=== PATIENT | male | born 1960 | race Caucasian/White ===

== ENCOUNTER 2020-11-29 07:10 | Day surgery (SDC) | payer OTHER ==
[~2020-11-29] VITALS: Ht 177.8 cm; Wt 100.4 kg
[~2020-11-29 07:10] MED LIST: ASMANEX110 MC1; BUDE6HFA; CYCL10; HYDCHL25; LISI20 PO; NEBI10 PO
[2020-11-29] MEDS ORDERED: ATOR20 PO (07:32)
[2020-12-10] MEDS ORDERED: ALBU90OI (09:08)
[2020-12-10] MEDS ORDERED: ATOR20 PO (09:08)
[2020-12-10] MEDS ORDERED: FISH OIL PO (09:09)
[2020-12-10] MEDS ORDERED: VITAMIN D310 MC4 PO (09:09)
[2020-12-10] MEDS ORDERED: HYDCHL25 PO (09:10)
[2020-12-10] MEDS ORDERED: FLUT1DIS5 (09:10)
== END 2020-11-29 09:15 | disposition home or self-care (01) ==
LOC: ORSCSDS 07:10
PROVIDERS: Internal Medicine Gastroenterology
PROC: 0DB58ZX Excision of Esophagus, Via Natural or Artificial Opening Endoscopic, Diagnostic (ICD-10-PCS; principal; 2020-11-29 08:30)
DX: C15.9 Malignant neoplasm of esophagus, unspecified (principal); K22.2 Esophageal obstruction; R63.4 Abnormal weight loss; I10 Essential (primary) hypertension; E78.5 Hyperlipidemia, unspecified; G47.33 Obstructive sleep apnea (adult) (pediatric); J45.909 Unspecified asthma, uncomplicated; Z79.899 Other long term (current) drug therapy
CPT/HCPCS: 88305; 88341; 88342; 88360; J0330; J0461; J2405; J2704; J7120

== ENCOUNTER 2020-12-03 07:48 | Day surgery (SDC) | payer OTHER ==
[~2020-12-03 07:48] MED LIST changes: +ATOR20 PO
[2020-12-10] MEDS ORDERED: ATOR20 PO (09:08)
[2020-12-10] MEDS ORDERED: ALBU90OI (09:08)
[2020-12-10] MEDS ORDERED: VITAMIN D310 MC4 PO (09:09)
[2020-12-10] MEDS ORDERED: FISH OIL PO (09:09)
[2020-12-10] MEDS ORDERED: FLUT1DIS5 (09:10)
[2020-12-10] MEDS ORDERED: HYDCHL25 PO (09:10)
== END 2020-12-03 10:25 | disposition home or self-care (01) ==
LOC: ATC 07:48
DX: E86.0 Dehydration (principal); K22.2 Esophageal obstruction
CPT/HCPCS: 96360; 96361; J7042

== ENCOUNTER 2020-12-11 10:57 | Day surgery (SDC) | payer OTHER ==
[~2020-12-11] VITALS: Ht 177.8 cm; Wt 97.0 kg
[~2020-12-11 10:57] MED LIST changes: +ALBU90OI; +FISH OIL PO; +FLUT1DIS5; +HYDCHL25 PO; +VITAMIN D310 MC4 PO
--- NOTE | 2020-12-11 11:25 | NUR ---
Ambulatory in Day Surgery Surgical site prepped with 2% Chlorhexidine cloth wipe. Jessica Paws warming gown applied. History, Chart, Medications and Allergies reviewed before start of procedure.Lungs clear T/O to Auscultation. Patient confirms NPO status and agrees with scheduled surgery. Pre-Op teaching done. Pt verbalizes understanding. Patient States Post-Procedure ride home has been arranged. Patient reports completing Chlorhexadine shower X2 prior to admission to hospital.
--- NOTE | 2020-12-11 14:50 | NUR ---
12/11/20 1450 Brien Triplett 1448 LAPAROSCOPIC GASTROSTOMY TUBE STARTED AFTER RE-DRAPING AND PREPPING.
--- NOTE | 2020-12-11 17:14 | NUR ---
Dressing to procedure site clean, dry, intact with no visible drainage, swelling, erythema or bruising noted.
--- NOTE | 2020-12-11 17:23 | NUR ---
Discharge instructions reviewed with patient. Patient verbalizes understanding. Copy given to patient to take home. Patient States Post-Procedure ride home has been arranged.
--- NOTE | 2020-12-11 17:35 | NUR ---
Dressing to procedure site clean, dry, intact with no visible drainage, swelling, erythema or bruising noted. RN DEMONSTRATED HOW TO ACCESS AND FLUSH PEG TUBE, TAUGHT PT AND SPOUSE.
== END 2020-12-11 18:12 | disposition home or self-care (01) ==
LOC: ORSCMMR 10:57 → ORD 12:30 → ORSCMMR 18:12
PROVIDERS: Surgery
PROC: B5131ZA Fluoroscopy of Right Jugular Veins using Low Osmolar Contrast, Guidance (ICD-10-PCS; principal; 2020-12-11 12:30)
PROC: 0DH64UZ Insertion of Feeding Device into Stomach, Percutaneous Endoscopic Approach (ICD-10-PCS; principal; 2020-12-11 12:30)
PROC: 05HM33Z Insertion of Infusion Device into Right Internal Jugular Vein, Percutaneous Approach (ICD-10-PCS; principal; 2020-12-11 12:30)
DX: C15.9 Malignant neoplasm of esophagus, unspecified (principal); R13.14 Dysphagia, pharyngoesophageal phase; I10 Essential (primary) hypertension; E78.5 Hyperlipidemia, unspecified; G47.33 Obstructive sleep apnea (adult) (pediatric); K21.9 Gastro-esophageal reflux disease without esophagitis; Z87.891 Personal history of nicotine dependence; Z79.899 Other long term (current) drug therapy
CPT/HCPCS: 77001; C1788; J0461; J0690; J1642; J1885; J2250; J2405; J2704; J3010; J7120

== ENCOUNTER 2021-03-01 08:42 | Day surgery (SDC) | payer OTHER | END 2021-03-01 12:15 | disposition home or self-care (01) | LOC: ATC 08:42 | DX: C15.5 Malignant neoplasm of lower third of esophagus (principal); C77.8 Secondary and unspecified malignant neoplasm of lymph nodes of multiple regions; C79.51 Secondary malignant neoplasm of bone; D70.1 Agranulocytosis secondary to cancer chemotherapy; I10 Essential (primary) hypertension; J45.909 Unspecified asthma, uncomplicated; E78.5 Hyperlipidemia, unspecified | CPT/HCPCS: 96360; J1642; J7030 ==

== ENCOUNTER 2021-06-07 13:06 | Emergency (ER) | payer OTHER ==
[~2021-06-07] VITALS: Ht 177.8 cm; Wt 81.7 kg
== END 2021-06-07 18:10 | disposition home or self-care (01) ==
LOC: ER 13:06
DX: K94.23 Gastrostomy malfunction (principal); C15.9 Malignant neoplasm of esophagus, unspecified; G89.29 Other chronic pain; I10 Essential (primary) hypertension; E78.5 Hyperlipidemia, unspecified; Z79.899 Other long term (current) drug therapy
CPT/HCPCS: 43762; 49465; 99283-25; A9270

== ENCOUNTER 2021-06-14 10:28 | Day surgery (SDC) | payer OTHER ==
[2021-06-14] MEDS ORDERED: LORA.5 PO (11:06)
[2021-06-14] MEDS ORDERED: DEXA4 PO (11:07)
[2021-06-14] MEDS ORDERED: Nexium40 MG PO (11:07)
[2021-06-14] MEDS ORDERED: FENTANYL1 EA13 TOP (11:07)
[2021-06-14] MEDS ORDERED: MIRALAX17 GM PO (11:08)
[2021-06-14] MEDS ORDERED: METO10SY PO (11:08)
[2021-06-14] MEDS ORDERED: LIDO700A20 TOP (11:08)
[2021-06-14] MEDS ORDERED: ONDA4ODT MM (11:09)
== END 2021-06-14 12:05 | disposition home or self-care (01) ==
LOC: ATC 10:28
DX: C15.5 Malignant neoplasm of lower third of esophagus (principal); E56.0 Deficiency of vitamin E; I10 Essential (primary) hypertension; E78.5 Hyperlipidemia, unspecified; G47.33 Obstructive sleep apnea (adult) (pediatric); J45.909 Unspecified asthma, uncomplicated
CPT/HCPCS: 96361; 96374; J1642; J2405; J7030

== ENCOUNTER 2021-06-26 04:04 | Day surgery (SDC) | payer OTHER ==
[~2021-06-26 04:04] MED LIST changes: +DEXA4 PO; +FENTANYL1 EA13 TOP; +LIDO700A20 TOP; +LORA.5 PO; +METO10SY PO; +MIRALAX17 GM PO; +Nexium40 MG PO; +ONDA4ODT MM
== END 2021-06-26 23:35 | disposition home or self-care (01) ==
LOC: WOUND 04:04
DX: S41.101A Unspecified open wound of right upper arm, initial encounter (principal); X58.XXXA Exposure to other specified factors, initial encounter
CPT/HCPCS: A9270; G0463

== ENCOUNTER 2021-07-03 09:07 | Day surgery (SDC) | payer OTHER | END 2021-07-03 23:34 | disposition home or self-care (01) | LOC: WOUND 09:07 | DX: S41.101A Unspecified open wound of right upper arm, initial encounter (principal); C44.599 Other specified malignant neoplasm of skin of other part of trunk; L59.9 Disorder of the skin and subcutaneous tissue related to radiation, unspecified; X58.XXXA Exposure to other specified factors, initial encounter | CPT/HCPCS: 88305; 88341; 88342; A9270 ==

== ENCOUNTER 2021-07-08 02:04 | Day surgery (SDC) | payer OTHER | END 2021-07-08 23:09 | disposition home or self-care (01) | LOC: WOUND 02:04 | DX: C44.529 Squamous cell carcinoma of skin of other part of trunk (principal); C15.5 Malignant neoplasm of lower third of esophagus; C77.8 Secondary and unspecified malignant neoplasm of lymph nodes of multiple regions; Z93.1 Gastrostomy status | CPT/HCPCS: A9270; G0463 ==

== ENCOUNTER 2021-07-31 01:03 | Day surgery (SDC) | payer OTHER | END 2021-07-31 23:06 | disposition home or self-care (01) | LOC: WOUND 01:03 | DX: L59.9 Disorder of the skin and subcutaneous tissue related to radiation, unspecified (principal); S41.101D Unspecified open wound of right upper arm, subsequent encounter; X58.XXXD Exposure to other specified factors, subsequent encounter; C44.92 Squamous cell carcinoma of skin, unspecified; C15.9 Malignant neoplasm of esophagus, unspecified | CPT/HCPCS: A9270; G0463 ==

== ENCOUNTER 2021-09-05 10:50 | Inpatient (IN) | payer OTHER ==
[~2021-09-05] VITALS: Ht 177.8 cm; Wt 79.4 kg
[2021-09-05 11:38] LABS: Hematocrit 33.5 % (37.0-53.0); Hemoglobin 11.3 g/dL (13.5-17.5); Mean Corpuscular HGB Conc 33.7 g/dL (31.5-36.5); Mean Corpuscular Volume 101 fL (80-100); Mean Platelet Volume 10.5 fL (9.1-12.4); NRBC ABSOLUTE 0.12 K/mm3 (0.00-0.02); NRBC Auto 2.3 /100 WBC (0.0-0.2); Platelet Count 110 K/mm3 (150-400); RDW Coefficient Variation 16.8 % (11.7-14.2); Red Blood Cell Count 3.32 M/mm3 (4.30-5.90); White Blood Cell Count 5.33 K/mm3 (4.00-11.30)
[2021-09-05 12:06] LABS: Alanine Aminotransfer (ALT/SGP 31 U/L (12-78); Albumin, Blood 2.6 g/dL (3.4-5.0); Albumin/Globulin Ratio 0.7 (0.8-1.8); Alk Phos 108 U/L (50-136); Anion Gap 4 mmol/L (6-16); Aspartate Aminotrans (AST/SGOT 40 U/L (12-37); Bilirubin, Direct 0.2 mg/dL (0.0-0.3); Bilirubin, Indirect 0.4 mg/dL (0.1-0.7); Bilirubin, Total 0.6 mg/dL (0.1-1.0); Blood Urea Nitrogen 15 mg/dL (8-24); Bun/Creatinine Ratio 34.6 (12.0-20.0); CO2, Blood 27 mmol/L (21-32); Calcium, Blood 8.5 mg/dL (8.5-10.1); Chloride, Blood 100 mmol/L (98-108); Creatinine, Blood 0.43 mg/dL (0.60-1.20); Globulin, Blood 3.5 g/dL (2.2-4.0); Glomerular Filtration Rate >60 (60-); Glucose, Blood 95 mg/dL (70-99); Magnesium, Blood 1.7 mg/dL (1.6-2.4); Potassium, Blood 3.5 mmol/L (3.5-5.5); Sodium, Blood 131 mmol/L (136-145); Total Protein, Blood 6.1 g/dL (6.4-8.2); Troponin I <0.015 ng/mL (0.000-0.040)
[2021-09-05 12:07] LABS: International Normalized Ratio 1.04; Prothrombin Time Results 10.9 Sec (9.7-11.5)
[2021-09-05 12:13] LABS: BAND PERCENT MAN 17 % (0-8); BASOPHILS ABSOLUTE MAN 0.05 K/mm3 (0.00-0.23); BASOPHILS PERCENT MAN 1 % (0-2); EOSINOPHILS PERCENT MAN 0 % (0-6); LYMPHOCYTES ABSOLUTE MAN 1.01 K/mm3 (0.84-5.20); LYMPHOCYTES PERCENT MAN 19 % (21-46); MONOCYTES ABSOLUTE MAN 0.42 K/mm3 (0.16-1.47); MONOCYTES PERCENT MAN 8 % (4-13); NEUTROPHILS ABSOLUTE MAN 3.83 K/mm3 (1.96-9.15); SEG NEUTROPHILS PERCENT MAN 55 % (41-73); TOTAL CELLS COUNTED 100
[2021-09-05 12:52] LABS: SARS-Cov-2 (COVID-19) PCR, MMC NEGATIVE (NEGATIVE)
[2021-09-05] MEDS ORDERED: OXYC1L PO (14:24)
[2021-09-05] MEDS ORDERED: TRAZ50 PO (14:25)
[2021-09-05] MEDS ORDERED: DEXAMETHAS0.5 MG/5 M PO (14:26)
[2021-09-05] MEDS ORDERED: Nexium40 MG PO (15:44)
[2021-09-05 15:47] LABS: Source, Urine Catheter
[2021-09-05 15:59] LABS: Appearance, Urine Hazy (Clear); Bilirubin, Urine Neg (Neg); Blood, Urine 1+ (Neg); Color, Urine Yellow (P-Yellow); Glucose Qualitative, Urine Neg (Neg); Ketones, Urine Neg (Neg); Leukocyte Esterase, Urine Neg (Neg); Nitrite, Urine Neg (Neg); Protein, Urine Neg (Neg); Urobilinogen, Urine NORM (Normal)
[2021-09-05 16:16] LABS: Bacteria Rare /hpf; Red Blood Cells, Urine 0-2 /hpf (0-2); Squamous Epithelial Cells Not Seen /hpf (Few); White Blood Cells, Urine 0-2 /hpf (0-5)
--- NOTE | 2021-09-05 16:25 | NUR ---
NEW ADMISSION Pt arrived from the Er with his at his side. He was able to get up and ambulate to the bathroom. He arrived with a temp of 98.2. IV fluids and ABO started as ordered. Pt has an open area that the reports as an open lymph node in his right axilla and the reports that he has been to the wound center in the past and they would just like it to be kept clean and dry and open to air. The pt is fatigued and falls asleep during assessment. He has a mediport but it in not accessed. The pt is NPO and per his receives blous tube feedings, the dock superintendent has been called and met with the before entering tube feed orders. is at the bedside and she is his primary caregiver, pt has his call light in reach and is able to make his needs known.
--- NOTE | 2021-09-06 02:35 | NUR ---
SHIFT SUMMARY: PT WITH MILD CONFUSION OVERNIGHT TO PLACE AND TIME, REORIENTS EASILY, SLIGHTY ANXIOUS, ABLE TO VERBALIZE NEEDS. REQUIRES ASSIST WITH CARE, BUT IS HESITANT TO ASK. VSS, T-MAX SO FAR THIS SHIFT 101.5, C/O MILD NAUSEA EARLY IN SHIFT RESOLVED WITH IV ZOFRAN. SR ON TELE, HAD FEELINGS OF "FULLNESS" AND SLIGHT RETURN OF NAUSEA AFTER 240ML OF PRESCIBED TUBE FEEDING, SO PEG TUBE FLUSHED AND CAPPED. RESIDUAL RECHECK LATER IN SHIFT WAS ZERO. RESTED INTERMITTENTLY THROUGHOUT NIGHT, HAS FENTANYL PATCH BUT GIVEN PRN PAIN MED EARLY IN SHIFT FOR BTP W/ GOOD EFFECT. BED LOCKED ANDLOW, BED ALARM ACTIVATED AND CALL MCCABE IN REACH. MADONNA FIGUEREDO
[2021-09-06 03:58] LABS: Hematocrit 30.2 % (37.0-53.0); Mean Corpuscular HGB 33.8 pg (26.0-34.0); Mean Corpuscular HGB Conc 33.1 g/dL (31.5-36.5); Mean Corpuscular Volume 102 fL (80-100); Mean Platelet Volume 10.4 fL (9.1-12.4); NRBC ABSOLUTE 0.14 K/mm3 (0.00-0.02); NRBC Auto 2.4 /100 WBC (0.0-0.2); Platelet Count 94 K/mm3 (150-400); RDW Coefficient Variation 16.8 % (11.7-14.2); RDW Standard Deviation 62.3 fL (35.1-46.3); Red Blood Cell Count 2.96 M/mm3 (4.30-5.90); White Blood Cell Count 5.76 K/mm3 (4.00-11.30)
[2021-09-06 04:14] LABS: Alanine Aminotransfer (ALT/SGP 24 U/L (12-78); Albumin/Globulin Ratio 0.7 (0.8-1.8); Alk Phos 83 U/L (50-136); Anion Gap 5 mmol/L (6-16); Aspartate Aminotrans (AST/SGOT 34 U/L (12-37); Bilirubin, Total 0.5 mg/dL (0.1-1.0); Blood Urea Nitrogen 12 mg/dL (8-24); Bun/Creatinine Ratio 29.1 (12.0-20.0); CO2, Blood 26 mmol/L (21-32); Calcium, Blood 7.7 mg/dL (8.5-10.1); Chloride, Blood 104 mmol/L (98-108); Creatinine, Blood 0.41 mg/dL (0.60-1.20); Globulin, Blood 2.9 g/dL (2.2-4.0); Glomerular Filtration Rate >60 (60-); Glucose, Blood 92 mg/dL (70-99); Magnesium, Blood 1.9 mg/dL (1.6-2.4); Potassium, Blood 3.6 mmol/L (3.5-5.5); Sodium, Blood 135 mmol/L (136-145); Total Protein, Blood 4.9 g/dL (6.4-8.2)
[2021-09-06 04:17] LABS: BAND PERCENT MAN 31 % (0-8); BASOPHILS ABSOLUTE MAN 0.05 K/mm3 (0.00-0.23); BASOPHILS PERCENT MAN 1 % (0-2); EOSINOPHILS ABSOLUTE MAN 0.05 K/mm3 (0.00-0.68); EOSINOPHILS PERCENT MAN 1 % (0-6); LYMPHOCYTES ABSOLUTE MAN 0.11 K/mm3 (0.84-5.20); LYMPHOCYTES PERCENT MAN 2 % (21-46); MONOCYTES ABSOLUTE MAN 0.34 K/mm3 (0.16-1.47); MONOCYTES PERCENT MAN 6 % (4-13); NEUTROPHILS ABSOLUTE MAN 5.18 K/mm3 (1.96-9.15); SEG NEUTROPHILS PERCENT MAN 59 % (41-73); TOTAL CELLS COUNTED 100
--- NOTE | 2021-09-06 18:31 | NUR ---
SHIFT SUMMARY PT HAS BEEN RESTING IN BED THROUGHOUT THE SHIFT. PT HAS MADE SEVERAL TRIPS TO THE RESTROOM WITH WALKER AND GAITBELT AND 1 STAFF MEMBER TO ASSIST. PT HAS MAINTAINED A TEMPERATURE OF 99.5-100.[address]'S ORDERS, TUBE FEEDING HAS BEEN HELD TODAY. PT AND FAMILY MEMBER HAVE MADE SEVERAL COMPLAINTS ABOUT WITHHOLDING TUBE FEED WHICH WERE ADDRESSED WITH PT EDUCATION AND A REQUEST TO THE DR TO COMMUNICATE WITH PT AND FAMILY. ALL OTHER VITAL SIGNS HAVE BEEN STABLE, NO ACUTE CHANGES TO CONDITION.
--- NOTE | 2021-09-06 22:17 | NUR ---
PT ASSESSED AT BEGINNING OF SHIFT WITH SPOUSE IN ROOM, DISCUSSED VISITING HOURS, WHICH HAVE CURRENLTY. VS TAKEN, SPOUSE QUESTIONED RESULT. WHEN THIS RN STEPPED OUT OF ROOM TO OBTAIN EQUIPMENT, RETURNED TO FIND SPOUSE CHECKING PT'S TEMPERATURE, AND WHEN QUESTIONED WHY SHE WAS DOING SO SINCE SHE WAS JUST UPDATED ABOUT VS 5 MINUTES AGO BY THIS RN, SPOUSE STATES, "I DONT THINK THESE ARE VERY ACCURATE. HE HAS BEEN HAVING A LOT OF DIFFERENT RESULTS." EDUCATED SPOUSE THAT PATIENT IS EXPERIENCING INTERMITTENT FEVERS AND THAT VARIOUS RESULTS EXPECTED. SPOUSE STILL IN ROOM 30 MINUTES LATER AND AGAIN EDUCATED ON VISITING HOURS. MADONNA CRUM
--- NOTE | 2021-09-06 22:36 | NUR ---
PER PHARMACIST, OK TO PIGGYBACK UNASYN TO CLINIMIX
--- NOTE | 2021-09-07 03:49 | NUR ---
SHIFT SUMMARY: MILD DISORIENTATION TO TIME AND PLACE OVERNIGTH BUT REORIENTS EASILY. PT IMPULSIVE, BED ALARM ACTIVATED, TO BSC FOR TOILETING NEEDS. GAIT WEAK AND UNSTEADY AND PT RELUCTANT TO ACCEPT HELP WITH CARE. SR ON TELE, T-MAX 100.9 TONIGHT BUT HAS HAD LOW LEVEL FEVER ALL NIGHT WITH LOWEST TEMP 99.9, MEDICATED X1 FOR BTP WITH PRESCRIBED MED WITH GOOD EFFECT, PT ABLE TO REST COMFORTABLY FOR SEVERAL HOURS AT A TIME, ONLY WAKING TO VOID. BED LOCKED AND LOW, CALL MCCABE IN REACH. REVERSE ISOLATION IN EFFECT. PEG TUBE FLUSHED EASILY, BOLUS TUBE FEEDINGS ON HOLD PER ORDER, CLINIMIX UP AND INFUSING ORDERED. MADONNA CRUM
[2021-09-07 03:52] LABS: Hematocrit 29.3 % (37.0-53.0); Hemoglobin 9.7 g/dL (13.5-17.5); Mean Corpuscular HGB 33.6 pg (26.0-34.0); Mean Corpuscular HGB Conc 33.1 g/dL (31.5-36.5); Mean Corpuscular Volume 101 fL (80-100); Mean Platelet Volume 10.5 fL (9.1-12.4); Platelet Count 103 K/mm3 (150-400); RDW Coefficient Variation 16.1 % (11.7-14.2); RDW Standard Deviation 59.7 fL (35.1-46.3); Red Blood Cell Count 2.89 M/mm3 (4.30-5.90); White Blood Cell Count 7.31 K/mm3 (4.00-11.30)
[2021-09-07 04:05] LABS: Albumin, Blood 1.8 g/dL (3.4-5.0); Anion Gap 6 mmol/L (6-16); Blood Urea Nitrogen 13 mg/dL (8-24); Bun/Creatinine Ratio 39.6 (12.0-20.0); CO2, Blood 24 mmol/L (21-32); Calcium, Blood 7.7 mg/dL (8.5-10.1); Chloride, Blood 104 mmol/L (98-108); Creatinine, Blood 0.33 mg/dL (0.60-1.20); Glomerular Filtration Rate >60 (60-); Glucose, Blood 130 mg/dL (70-99); Phosphorus, Blood 1.8 mg/dL (2.5-4.9); Potassium, Blood 3.1 mmol/L (3.5-5.5); Sodium, Blood 134 mmol/L (136-145)
[2021-09-07 04:45] LABS: BAND PERCENT MAN 35 % (0-8); BASOPHILS PERCENT MAN 0 % (0-2); EOSINOPHILS PERCENT MAN 0 % (0-6); LYMPHOCYTES ABSOLUTE MAN 0.14 K/mm3 (0.84-5.20); LYMPHOCYTES PERCENT MAN 2 % (21-46); MONOCYTES ABSOLUTE MAN 0.36 K/mm3 (0.16-1.47); MONOCYTES PERCENT MAN 5 % (4-13); NEUTROPHILS ABSOLUTE MAN 6.79 K/mm3 (1.96-9.15); SEG NEUTROPHILS PERCENT MAN 58 % (41-73); TOTAL CELLS COUNTED 100
--- NOTE | 2021-09-08 00:45 | NUR ---
PATIENT ALERT AND ORIENATED, ABLE TO MAKE NEEDS KNOWN, ONE PERSON ASSIST WITH A FWW TO RESTROOM, STEADY WITH AMBULATION. PEG TUBE IS AT 7CM SITE IS CLEAN DRY AND INTACT BOLUS FEEDING 500ML GIVEN AT MIDNIGHT NO RESIDUAL NOTED, VITALS ARE STABLE SLIGHT TEMPERATURE MAINTAINING AT 99.0-99.3 WILL CONTINUE TO MONITOR.
[2021-09-08 03:58] LABS: Hematocrit 26.9 % (37.0-53.0); Hemoglobin 9.1 g/dL (13.5-17.5); Mean Corpuscular HGB 33.7 pg (26.0-34.0); Mean Corpuscular HGB Conc 33.8 g/dL (31.5-36.5); Mean Corpuscular Volume 100 fL (80-100); Mean Platelet Volume 10.3 fL (9.1-12.4); Platelet Count 114 K/mm3 (150-400); RDW Standard Deviation 57.8 fL (35.1-46.3); White Blood Cell Count 8.87 K/mm3 (4.00-11.30)
[2021-09-08 04:34] LABS: Albumin, Blood 1.6 g/dL (3.4-5.0); Anion Gap 6 mmol/L (6-16); Blood Urea Nitrogen 10 mg/dL (8-24); Bun/Creatinine Ratio 28.4 (12.0-20.0); CO2, Blood 26 mmol/L (21-32); Calcium, Blood 7.5 mg/dL (8.5-10.1); Chloride, Blood 101 mmol/L (98-108); Creatinine, Blood 0.35 mg/dL (0.60-1.20); Glomerular Filtration Rate >60 (60-); Glucose, Blood 162 mg/dL (70-99); Potassium, Blood 2.9 mmol/L (3.5-5.5); Sodium, Blood 133 mmol/L (136-145)
[2021-09-08 05:27] LABS: Phosphorus, Blood 0.9 mg/dL (2.5-4.9)
[2021-09-08 05:39] LABS: BAND PERCENT MAN 45 % (0-8); BASOPHILS PERCENT MAN 0 % (0-2); EOSINOPHILS PERCENT MAN 0 % (0-6); LYMPHOCYTES ABSOLUTE MAN 0.17 K/mm3 (0.84-5.20); LYMPHOCYTES PERCENT MAN 2 % (21-46); MONOCYTES ABSOLUTE MAN 0.17 K/mm3 (0.16-1.47); MONOCYTES PERCENT MAN 2 % (4-13); NEUTROPHILS ABSOLUTE MAN 8.51 K/mm3 (1.96-9.15); SEG NEUTROPHILS PERCENT MAN 51 % (41-73); TOTAL CELLS COUNTED 100
--- NOTE | 2021-09-08 07:00 | NUR ---
CARE ASSUMPTION THIS RN ASSUMED CARE FROM FELIX PEACOCK. PATIENT A/OX4. VSS. SPO2 >90%. TELE. PATIENT REPORTS NO PAIN, CHEST PAIN OR SOB. CALL LIGHT WITHIN REACH. WILL CONTINUE TO MONITOR AND PROVIDE CARE.
--- NOTE | 2021-09-08 10:50 | NUR ---
Family contact - indiraErin holloway [phone] -Mohini [phone]. t/c received from pt's IndiraErin with request for her mom to be allowed in earlier due to pt's confusion and wanting to be present for oncology visit. Checked in with pt's RN and rn hemodialysis charge. No oncology consult ordered and pt appears clear, alert and oriented per RN. She had him up OOB in BR when I arrived and I was not able to visit with him. Returned call to indira to let her know family should call Dr Lamb at his office if questions for him re: plan of care for tx of cancer. Indira was glad pt had been referred to [facility]. I will try to visit pt/ when she is hear during regular visiting hours this afternoon.
[2021-09-08 14:44] LABS: Albumin, Blood 1.8 g/dL (3.4-5.0); Anion Gap 7 mmol/L (6-16); Blood Urea Nitrogen 10 mg/dL (8-24); Bun/Creatinine Ratio 33.6 (12.0-20.0); CO2, Blood 26 mmol/L (21-32); Calcium, Blood 7.9 mg/dL (8.5-10.1); Chloride, Blood 99 mmol/L (98-108); Glomerular Filtration Rate >60 (60-); Glucose, Blood 132 mg/dL (70-99); Phosphorus, Blood 1.8 mg/dL (2.5-4.9); Potassium, Blood 3.2 mmol/L (3.5-5.5); Sodium, Blood 132 mmol/L (136-145)
--- NOTE | 2021-09-08 16:00 | NUR ---
Initial visit made to pt and . Discussed current status and s/s. Pt reports some nausea with restart of g-tube feedings and states Zofran has been helpful for that. We talked about needs at home, DME, relocating pt in home so stairs are not a barrier to easy access to BR, BSC if needed and wedge pillow for hob elevation if receiving tube feedings while sleeping or hospital bed with hob elevation available. Some light conversation also employed for therapeutic distraction. Pt expressed fear r/t dying or aspirating in his sleep. Assured him we would not give anything via g-tube without elevation of HOB. Pt started to say, "well, it's coming anyway"... referring to dying and interupted saying "No, you're ok now. Everything will be ok.". I waited a few moments and then encouraged pt/ to express all feelings, fear, grief, chris, anger, gratitude etc that he felt. Both expressed appreciation for the visit. exhibiting extreme fatigue, CG exhaustion and apprehension/anxiety with 's serious illness and growing significant care needs. We discussed HH PT to help with making home more ADL friendly & increase safety with mobility, HH RN services prn. Pt more alert/oriented since admit. We reviewed multiple reasons confusion, altered MS/LOC occurs. verbalized concerns for lack of adequate nutrition over past 2-3 days. We talked about reasons feedings were necessarily held and she verbalized understanding. She and pt have good family support and are clearly very supportive and loving to each other. Planned with pt and to check in on them tomorrow. states Dr Lamb's office and [facility] dietitian are aware of his admission to the hospital and that they will follow up with them later in the week.
--- NOTE | 2021-09-08 17:37 | NUR ---
REPORT TO MED RN THIS RN GAVE REPORT TO MADONNA BRAR ON MEDICAL FLOOR. WILL WAIT UNTIL ROOM IS CLEAN TO TAKE PATIENT UP.
--- NOTE | 2021-09-08 17:58 | NUR ---
SHIFT SUMMARY PATIENT A/OX4. VSS. SPO2 >90% ON RA. TELE SR. PATIENT STATES HE HAS CHRONIC BACK PAIN, AND PAIN MEDICATION PER EMAR HELPS RELIEVE THIS. PATIENT HAS HAD TWO EPISODES OF NAUSE DURING THIS SHIFT AND RECEIVE ZOFRAN AND REGLAN PER EMAR. THIS PATIENT IS CURRENTLY RESTING IN BED WITH AT BEDSIDE UNTIL TRANSFER UP TO MEDICAL FLOOR. CALL LIGHT WITHIN REACH.
--- NOTE | 2021-09-08 18:14 | NUR ---
PATIENT TO [facility] PATIENT BELONGINGS GATHERED AND PATIENT UP TO [facility].
--- NOTE | 2021-09-09 04:30 | NUR ---
SHIFT SUMMARY AOX4. REPORTS CHRONIC 8/10 PAIN IN LOW BACK R/T CANCER ARELY, MEDICATED c TYLENOL & 10MG OXYCODONE 1X. PT FINALLY ABLE TO FALL ASLEEP AROUND 0230 THIS AM. TELE NSR HR 92. SPO2 @86-88% ON RA THIS AM WHILE ASLEEP. PLACED 2L O2 ON & SPO2 @92%. LS DIM IN BASES. E/U RESP. DENIES SOB @REST. PT NPO. RECIEVING MEDS & TUBE FEEDINGS. DENIES N/V. ABLE TO MAKE NEEDS KNOWN. CALL LIGHT IN REACH. WCTM.
[2021-09-09 05:04] LABS: BASOPHILS ABSOLUTE AUTO 0.03 K/mm3 (0.00-0.23); BASOPHILS PERCENT AUTO 0 % (0-2); Hematocrit 26.3 % (37.0-53.0); LYMPHOCYTES ABSOLUTE AUTO 0.23 K/mm3 (0.84-5.20); LYMPHOCYTES PERCENT AUTO 2 % (21-46); MONOCYTES ABSOLUTE AUTO 0.55 K/mm3 (0.16-1.47); MONOCYTES PERCENT AUTO 6 % (4-13); Mean Corpuscular HGB 33.7 pg (26.0-34.0); Mean Corpuscular HGB Conc 34.2 g/dL (31.5-36.5); Mean Corpuscular Volume 99 fL (80-100); Mean Platelet Volume 9.9 fL (9.1-12.4); Platelet Count 136 K/mm3 (150-400); RDW Standard Deviation 56.9 fL (35.1-46.3); Red Blood Cell Count 2.67 M/mm3 (4.30-5.90); White Blood Cell Count 9.94 K/mm3 (4.00-11.30)
[2021-09-09 05:05] LABS: EOSINOPHILS ABSOLUTE AUTO 0.03 K/mm3 (0.00-0.68); EOSINOPHILS PERCENT AUTO 0 % (0-6); IMMATURE GRAN ABSOLUTE AUTO 0.12 K/mm3 (0.00-0.10); IMMATURE GRAN PERCENT AUTO 1 % (0-1); NEUTROPHILS ABSOLUTE AUTO 8.98 K/mm3 (1.96-9.15); NEUTROPHILS PERCENT AUTO 90 % (41-73)
[2021-09-09 05:25] LABS: Albumin, Blood 1.5 g/dL (3.4-5.0); Anion Gap 6 mmol/L (6-16); Blood Urea Nitrogen 9 mg/dL (8-24); Bun/Creatinine Ratio 25.9 (12.0-20.0); CO2, Blood 27 mmol/L (21-32); Calcium, Blood 7.5 mg/dL (8.5-10.1); Chloride, Blood 101 mmol/L (98-108); Creatinine, Blood 0.35 mg/dL (0.60-1.20); Glomerular Filtration Rate >60 (60-); Glucose, Blood 97 mg/dL (70-99); Phosphorus, Blood 1.6 mg/dL (2.5-4.9); Potassium, Blood 3.4 mmol/L (3.5-5.5); Sodium, Blood 134 mmol/L (136-145)
--- NOTE | 2021-09-09 10:39 | NUR ---
PATIENT UP AMBULATING TO BATHROOM WITH STAND BY ASSIST. USES FRONT WHEEL WALKER. RETURNS TO BED MD AT BEDSIDE FOR AM ROUNDINGS. PAITENT IS AO X 3. PLEASANT AFFECT. NADN. PATIENT TO HAVE REPEAT XRAY IN THE AM. TUBE FEEDINGS ADMIN ORDERED. NO RESIDUAL NOTED FEED ONE CARTON AT 250ML. ADMIN PER PEGG AND 240ML ADMIN POST. PATIENT REQUESTING ZOFRAN ADMIN FOR NAUSEA AND ALSO HIS OXYCODONE PRN TABLET. PATIENT EXPRESSES 8/10 PAIN IN HIS LOW BACK. HE WAS PROVIDED PO TYLENOL 1 HOUR PRIOR WITH MINIMAL SUCCESS. SPOUSE CALLS AND SHE IS BRINGING NIKATENT CLEAN CHANGE OF CLOTHING AND HE WANTS TO WAIT TO SHOWER TILL SHE ARRIVES. PATIENT DENIES ANY FURTHER WANTS OR NEEDS. ЮЛИЯ LANZA RN
[2021-09-09 12:37] LABS: Vancomycin, Trough 7.2 ug/mL (5.0-10.0)
--- NOTE | 2021-09-09 14:52 | NUR ---
Visit to pt/ in . Pt is noticeably more irritated and uncomfortable today. requestes update and information gathered and reported from RN and . Also, Dr will round later this afternoon to update in person. Pt waiting for IV to be completed so he and can get him a shower. Pt expressed feeling he did not have enough time with his . I made my visit brief and shut the door for their privacy when I left. Plan is for CXR in am, reeval of progress and Dr to speak with cut off saw grader re: recommendation on g-tube feedings also. [facility] to remain available to pt/family during his stay. Pt is experiencing some nausea still, with zofran being administered per eMAR with relief of nausea per pt.
--- NOTE | 2021-09-09 18:02 | NUR ---
Shift Summary A/Ox4, reports patient can be forgetful/confused at times; however did not present this way today. Up with SBA and FWW to bathroom, had shower this shift. Medicated for back pain per EMAR with good effect. C/O nausea after tube feedings, zofran given. Patient reports reglan "gives me the runs." Tele: SR [id number]. would like call from to discuss possible HH and additional assistive devices to be ordered. R arm pit has open area that is hard and round when palpated. Patient reports this is related to cancerous lymph nodes in that area. Sputum sample sent. TM.
[2021-09-10 05:54] LABS: BASOPHILS ABSOLUTE AUTO 0.02 K/mm3 (0.00-0.23); BASOPHILS PERCENT AUTO 0 % (0-2); Hematocrit 25.9 % (37.0-53.0); Hemoglobin 8.7 g/dL (13.5-17.5); LYMPHOCYTES ABSOLUTE AUTO 0.27 K/mm3 (0.84-5.20); LYMPHOCYTES PERCENT AUTO 2 % (21-46); MONOCYTES ABSOLUTE AUTO 0.52 K/mm3 (0.16-1.47); MONOCYTES PERCENT AUTO 5 % (4-13); Mean Corpuscular HGB 33.3 pg (26.0-34.0); Mean Corpuscular HGB Conc 33.6 g/dL (31.5-36.5); Mean Corpuscular Volume 99 fL (80-100); Mean Platelet Volume 10.2 fL (9.1-12.4); Platelet Count 170 K/mm3 (150-400); RDW Coefficient Variation 15.9 % (11.7-14.2); Red Blood Cell Count 2.61 M/mm3 (4.30-5.90); White Blood Cell Count 11.09 K/mm3 (4.00-11.30)
[2021-09-10 05:57] LABS: EOSINOPHILS ABSOLUTE AUTO 0.02 K/mm3 (0.00-0.68); EOSINOPHILS PERCENT AUTO 0 % (0-6); IMMATURE GRAN ABSOLUTE AUTO 0.17 K/mm3 (0.00-0.10); IMMATURE GRAN PERCENT AUTO 2 % (0-1); NEUTROPHILS ABSOLUTE AUTO 10.09 K/mm3 (1.96-9.15); NEUTROPHILS PERCENT AUTO 91 % (41-73)
--- NOTE | 2021-09-10 06:14 | NUR ---
SHIFT SUMMARY PT HAD A DIFFICULT EVENING. REQUIRING MORE OXYGEN MOST OF THE NIGHT. LUNG SOUNDS WITH CRACKLES THROUGHOUT. PT ON 6-11 L. SWITCHED PT TO OXYMIZER WHEN NEEDING MORE LITERS. PT DENIES SOB WHILE AT REST BUT REPORTS FEELING OVERALL VERY "TIRED". SEVERAL TRIPS MADE TO THE RESTROOM. STOOL LOOSE WITH EACH TRIP. PT BECAME MORE AND MORE WEAK WITH EACH TRIP. ON THE LAST ONE PT WAS UNABLE TO AMBULATE BACK TO BED. PT WAS PLACED ON SHOWER CHAIR AND ROLLED BACK TO BED BY THIS RN AND THE [employer]. PT VERY FATIGUED FOLLOWING. REQUIRING ALMOST A HALF AN HOUR TO RECOVER. O2 REMAINS AT 9 L AFTER LAST BATHROOM TRIP, DOWN FROM 11 JUST AFTER RETURNING TO BED. ABD DOES APPEAR DISTENDED. HOWEVER NO RESIDUAL FROM CHECKS WITH TUBE FEEDINGS. 2100 DONE AND 0600 FEEDING CURRENTLY RUNNING. PT TOLERATED WELL. NO COMPLAINTS OF NAUSEA. PT REPORTS CHRONIC BACK PAIN FROM [place] WITH METS. MEDICATED PER EMAR. ASIDE FROM INCREASE IN OXYGEN DEMANDS VITAL SIGNS REMAINED STABLE. PT SLEEPING AT THIS TIME. WILL CONTINUE TO MONITOR.
[2021-09-10 06:17] LABS: Albumin, Blood 1.4 g/dL (3.4-5.0); Anion Gap 7 mmol/L (6-16); Blood Urea Nitrogen 10 mg/dL (8-24); Bun/Creatinine Ratio 28.4 (12.0-20.0); CO2, Blood 26 mmol/L (21-32); Calcium, Blood 7.5 mg/dL (8.5-10.1); Chloride, Blood 100 mmol/L (98-108); Creatinine, Blood 0.35 mg/dL (0.60-1.20); Glomerular Filtration Rate >60 (60-); Glucose, Blood 105 mg/dL (70-99); Phosphorus, Blood 1.3 mg/dL (2.5-4.9); Potassium, Blood 3.3 mmol/L (3.5-5.5); Sodium, Blood 133 mmol/L (136-145)
--- NOTE | 2021-09-10 16:00 | NUR ---
Transfer of Care Transferred from [place] [id number] to ICU 11 after LAMINATION TECHNICIAN initiated. Report given to MADONNA Elder. and daughter Erin at bedside during LAMINATION TECHNICIAN and aware of transfer of care. Transported via bed by Clinical Coordinator Law, Charge Christina, and ICU Charge. Personal belongings and TF formula sent.
--- NOTE | 2021-09-10 18:22 | NUR ---
Wasted 200mg propofol/4mg versed with Meliza RN for anticipated intubation pharmacy aware, RSI kit locked and returned to pharmacy.
--- NOTE | 2021-09-10 18:24 | NUR ---
MEDICAL REFERRAL COORDINATOR from medical floor arrival 1630: AOx4, denies P/N/V, complains of SOB, lungs coarse upper [place] dim in bases, RR 30s, sats supposed in 60s on NRB, on airvo in ICU 55L/100%, sats 93%, BP soft 90s systolic, +2 pulses, ST 100s, gental hydration 60ml/hr LR initiated, abdomen rounded non-firm, audible bowels, LBM 09/10/21, educated on beaver Pt denies at this time, voids urinal otherwise, PEG tube in place CDI. Discussion with /Pt, made comfort care, continue on airvo high oxygen needs until family and Pt desides otherwise, multiple members of family visiting, Pt/ educated on comfort care process and verbalized will contact staff if Pt conditions warrents or Pt requests comfort care meds. .
--- NOTE | 2021-09-10 19:20 | NUR ---
Called to meet with pt during visiting hours. pt more faragile and stuggling tobreath nurse in to check sats. pt low sats and aggitated. Rapid respnse called. tp sent to icu put on airvo with great improvement. FAmily discussed prognsosis with attending and hospitalist and pt placed on comfort only. will follow for symptom management and family support. Suggest keep airvo in until well medicated. Will address tube feeding pt bloated. may benefit from phenregren suppostiry if nausea persists.
[2021-09-11 12:09] LABS: Source, Urine Catheter
--- NOTE | 2021-09-11 12:18 | NUR ---
REASSESSMENT PT HAS BEEN ALERT THIS SHIFT, ABLE TO VOICE WHEN HE IS UNCOMFORTABLE AND REQUEST REPOSITIONING. HE REMAINS ON THE 55L AND 60% VIA HI [place] NC. AT REST HIS BREATHING IS MILDLY LABORED. HE INSISTED ILIANA ETTING UP TO THE COMMODE AND THE BEGINNING OF SHIFT AND THE AIDE REPORTED THAT THE PT DID NOT TOLERATE IT WELL, TURNING PURPLE AND NEEDING A LOT OF ASSISTANCE TO GET BACK TO BED. THEN AT NOON PT WAS NEEDING TO VOID AGAIN, BUT WANTED TO TRY JUST SITTING AT THE EDGE OF BED BECAUSE HE WAS UNABLE TO VOID LAYING DOWN. PT GOT TO THE EDGE OF THE BED, BUT HE WAS DYSPNEIC AND REQUESTED LIE BACK DOWN. DISCUSSED INSERTING A SHARIF FOR COMFORT AND PT AND HIS AGREED. SHARIF INSERTED BY LITIGATION EXAMINER TRACE WITH SUPERVISION AND PT TOLERATED WELL. PT RESTING COMFORTABLY WITH FAMILY AT THE BEDSIDE. CONTINUING TO MONITOR.
[2021-09-11 12:26] LABS: Appearance, Urine Clear (Clear); Bilirubin, Urine Neg (Neg); Blood, Urine 1+ (Neg); Color, Urine Yellow (P-Yellow); Glucose Qualitative, Urine Neg (Neg); Ketones, Urine Neg (Neg); Leukocyte Esterase, Urine Neg (Neg); Nitrite, Urine Neg (Neg); Protein, Urine 2+ (Neg); Specific Gravity, Urine 1.015 (1.003-1.022); Urobilinogen, Urine 3+ (Normal)
[2021-09-11 12:53] LABS: Bacteria Rare /hpf; Red Blood Cells, Urine 0-2 /hpf (0-2); Squamous Epithelial Cells Not Seen /hpf (Few)
--- NOTE | 2021-09-11 17:45 | NUR ---
SHIFT SUMMARY PT REMAINS ALERT AND ORIENTED, RESTING IN BED THROUGHOUT THE DAY AND ABLE TO COMMUNICATE HIS NEEDS. HE SPENT THE DAY VISITING WITH FAMILY AND VISITORS, STILL WAITING ON HIS BROTHER TO ARRIVE FROM OUT OF THE AREA. MEDICATED WITH MORPHINE AND ZOFRAN TWICE THROUGHOUT THE DAY. PT IS ON AIRVO 60L 100% AND GETS A LOT OF AIR HUNGER WHEN EVEN TAKING THE OXYGEN OFF TO BLOW HIS NOSE. DISCUSSED WITH PT AND FAMILY THE BENEFITS OF ROXANOL FOR THE AIR HUNGER, BUT PT WOULD RATHER HAVE THE IV MORPHINE AT THIS TIME. KOLE PALCED TODAY FOR PT COMFORT HE WAS NOT ABLE TO VOID LYING DOWN AND NOT ABLE TO TOLERATE GETTING UP TO VOID. FAMILY IS ACTING APPROPRIATELY GIVEN THE SITUATION. EMOTIONAL SUPPORT PROVIDED NEEDED.
--- NOTE | 2021-09-11 17:54 | NUR ---
Met with pt, and 3 daughters today. Pt is currently on comfort care, but the family is requesting more information on what end of life will look like, as he is currently on airvo. They still have family coming to see pt, so they are not ready to increase morphine and/or decrease airvo. ICU nurse discharge planner states she is not planning on moving pt from ICU unless it becomes absolutly necessary, as he is quite comfy, so is the family. Educated on end of life care, including leaving some booklets with in depth information on end of life. They v/u. Plan to review with them tomorrow.
--- NOTE | 2021-09-12 01:16 | NUR ---
PT FAMILY AT BEDSIDE, COMFORT MEASURES IN PLACE.
--- NOTE | 2021-09-12 05:16 | NUR ---
PT RESTING COMFORTABLY WITH EYES CLOSED. AND 3 DAUGHTERS AT BEDSIDE.
--- NOTE | 2021-09-12 10:33 | NUR ---
PT FAMILY AT BEDSIDE, OFFERED THEM COFFEE, WARM BLANKETS. PALLITIVE CARE NURSE INVOLVED FAMILY REQUEST TO TALK TO HER.
--- NOTE | 2021-09-12 11:09 | NUR ---
Met with pt's family this morning. Pt is no longer responsive. He remains on airvo, and continues to receive lorazepam and morphine as needed for anxiety and air hunger. He appears comfortable, with no grimacing present. Pt's fingernails and toenails appear dusky blue, cyanotic. Breathing is irregular, rapid. and daughters remain at bedside, and state they are very thankful for the booklets and the teaching and conversations yesterday on and dying, as it has been instrumental in assisting them in understanding the changes they are seeing in the patient. They state the experience has been "beautiful", and they are beginning to feel prepared for pt's passing. We discussed changing pt from airvo to basic nasal canula, along with medicating for pt comfort. Pt's daughters are in agreement and so is their mom, pt's . However, she reports there are a few more people coming to say goodbye this morning, and she requests we wait "a few more hours" before changing canula. Daughters are in agreement. Updated bedside RN and ICU charge nurse Demar. Plan to check in with family in the next 2 hours.
--- NOTE | 2021-09-12 14:40 | NUR ---
PT FAMILY AT BEDSIDE IN TIME OF PATIENT (AT 1415), DR. SEGOVIA WAS NOTIFIED. FAMILY TOOK PATIENT PERSONAL BELONGINGS WITH THEM. BRITANYMATHEMATICS PROFESSOR NURSE CALLED [place]
== END 2021-09-12 14:15 | DRG 871 ==
LOC: ER 10:50 → PCU 14:54 → MEDS 09-08 18:17 → ICUW 09-10 16:27
PROVIDERS: Family Medicine; Internal Medicine; Nurse Practitioner Acute Care; Student in an Organized Health Care Education/Training Program; ADMIT Internal Medicine
DX: A41.52 Sepsis due to Pseudomonas (principal); J15.1 Pneumonia due to Pseudomonas; G92.8 Other toxic encephalopathy; J69.0 Pneumonitis due to inhalation of food and vomit; J80 Acute respiratory distress syndrome; C79.51 Secondary malignant neoplasm of bone; C15.9 Malignant neoplasm of esophagus, unspecified; E87.1 Hypo-osmolality and hyponatremia; Z66 Do not resuscitate; Z51.5 Encounter for palliative care; Z20.822 Contact with and (suspected) exposure to COVID-19; Z91.19 Patient's noncompliance with other medical treatment and regimen; G47.33 Obstructive sleep apnea (adult) (pediatric); E78.5 Hyperlipidemia, unspecified; I10 Essential (primary) hypertension; E78.00 Pure hypercholesterolemia, unspecified; D63.8 Anemia in other chronic diseases classified elsewhere; D69.59 Other secondary thrombocytopenia; T45.1X5A Adverse effect of antineoplastic and immunosuppressive drugs, initial encounter; K21.9 Gastro-esophageal reflux disease without esophagitis; Z98.890 Other specified postprocedural states; Z79.52 Long term (current) use of systemic steroids; Z79.899 Other long term (current) drug therapy; E87.6 Hypokalemia; E83.39 Other disorders of phosphorus metabolism; Z93.1 Gastrostomy status
CPT/HCPCS: 36415; 51702; 71045; 71046; 74177; 80048; 80053; 80069; 80076; 80202; 81001; 83605; 83690; 83735; 84145; 84484; 85025; 85610; 85730; 87040; 87070; 87077; 87086; 87186; 87205; 93005; 93010; 94660; 94760; 94762; 96365; 96375; 97110; 97161; 97165; 97530; 97535; 99285-25; A9270; C1751; J0295; J0456; J1170; J1650; J1885; J2060; J2250; J2270; J2405; J2543; J2765; J3370; J7030; J7050; J7060; J7120; Q9967; U0004